=== PATIENT | male | born 1990 | race Caucasian/White ===

== ENCOUNTER 2023-06-17 07:29 | Outpatient (CLI) | payer OTHER | END 2023-06-17 08:00 | disposition home or self-care (01) | LOC: TOM 07:29 | PROVIDERS: ATTEND General Practice | DX: R53.1 Weakness (principal); Z00.8 Encounter for other general examination; R41.3 Other amnesia; E78.2 Mixed hyperlipidemia; L98.9 Disorder of the skin and subcutaneous tissue, unspecified; E66.01 Morbid (severe) obesity due to excess calories; R21 Rash and other nonspecific skin eruption; R06.83 Snoring; G47.30 Sleep apnea, unspecified ==

== ENCOUNTER → 2024-08-10 09:08 | Outpatient (CLI) | payer OTHER | END | disposition home or self-care (01) | LOC: MRI 09:08 | PROVIDERS: ATTEND Radiology Diagnostic Radiology | DX: M54.50 Low back pain, unspecified (principal) | CPT/HCPCS: 72148 ==